=== PATIENT | male | born 1965 | race Caucasian/White ===

== ENCOUNTER 2019-04-07 22:38 | Emergency (ER) | payer OTHER ==
[~2019-04-07] VITALS: Ht 182.9 cm; Wt 77.1 kg
[2019-04-07 22:45] VITALS: BP 130/80
[2019-04-07] MEDS ORDERED: CELEXA20 MG ORAL (22:49)
[2019-04-07] MEDS ORDERED: LEVOTHYROXINE75 MCG ORAL (22:49)
[2019-04-07] MEDS ORDERED: VYVANSE20 MG ORAL (22:49)
--- NOTE | 2019-04-07 22:55 | NUR ---
ED Nurse Note: pt ambulated to ED from home c/o 10 Abdominal pain radiating to flank x1week, nausea and vommitting today. Pt is A&Ox4
--- NOTE | 2019-04-07 23:04 | NUR ---
ED Nurse Note: Pt down to CT
--- NOTE | 2019-04-07 23:08 | Emergency Room Report ---
History of Present Illness General Chief Complaint: Abdominal Pain Source: Patient Present Illness HPI This is a 53-year-old male with no past medical history. He presents with chief complaint of right flank pain. He is ongoing for a couple weeks now. He had an initial urinalysis which show crystals. His doctor thought he may have had a kidney stone. He had a recent urinalysis and was negative. Patient had acute flank pain and epigastric pain with nausea and vomiting. This is after taking an herbal supplement. He is felt better now. Pain is achy now. No longer have any vomiting. No diarrhea. Denies any other complaint. Allergies: Coded Allergies: No Known Allergies (Unverified , 04/07/19) Patient History Past Medical History: see triage record, old chart reviewed Past Surgical History: none Pertinent Family History: none Social History: Denies: smoking Immunizations: other Reviewed Nursing Documentation: PMH: Agreed; PSxH: Agreed Nursing Documentation-PMH Past Medical History: No History, Except For Review of Systems Eye: Denies: eye pain, blurred vision ENT: Denies: ear pain, nose congestion, throat swelling Respiratory: Denies: cough, shortness of breath Cardiovascular: Denies: chest pain, palpitations Gastrointestinal: Reports: abdominal pain, nausea, vomiting; Denies: diarrhea Musculoskeletal: Denies: back pain, joint pain Skin: Denies: rash Neurological: Denies: headache, numbness Endocrine: Denies: increased thirst, increased urine Hematologic/Lymphatic: Denies: easy bruising All Other Systems: negative except mentioned in HPI Physical Exam Vital Signs Date Time Temp Pulse Resp B/P (MAP) Pulse Ox O2 Delivery O2 Flow Rate FiO2 04/07/19 22:41 99.5 91 24 130/80 (97) 98 Room Air Vitals normal Sp02 EP Interpretation: reviewed, normal General Appearance: well appearing, no apparent distress, alert Head: normocephalic, atraumatic Eyes: bilateral eye PERRL, bilateral eye EOMI ENT: hearing grossly normal, normal pharynx Neck: full range of motion, supple, no meningismus Respiratory: chest non-tender, lungs clear, normal breath sounds Cardiovascular #1: regular rate, rhythm, no murmur Gastrointestinal: normal bowel sounds, non tender, no mass, no organomegaly, no bruit, non-distended Musculoskeletal: back normal, gait/station normal, normal range of motion Psychiatric: mood/affect normal Medical Decision Making Diagnostic Impression: Primary Impression: Abdominal pain Qualified Codes: R10.84 - Generalized abdominal pain Additional Impression: Gastroenteritis ER Course Patient with abdominal pain with nausea and vomiting. CT scan negative for kidney stone. Does have evidence of gastroenteritis. Symptoms improved. Will discharge home. CT/MRI/US Diagnostic Results CT/MRI/US Diagnostic Results : Imaging Test Ordered: CT abdomen pelvis Impression By radiologist. Fluid within nondistended loops of small bowel and within stomach. This is usually seen with gastroenteritis. Last Vital Signs Date Time Temp Pulse Resp B/P (MAP) Pulse Ox O2 Delivery O2 Flow Rate FiO2 04/07/19 22:41 99.5 91 24 130/80 (97) 98 Room Air Status: improved Disposition: HOME, SELF-CARE Condition: Stable Scripts Ondansetron (Zofran) 4 Mg Tablet 4 MG ORAL Q6H PRN for Nausea & Vomiting, #10 TAB 0 Refills Prov: Vincenzo Alvarado MD 04/08/19 Referrals: NON PHYSICIAN (PCP) Additional Instructions: Increase fluids. Advance diet as tolerated. Follow-up with your doctor in 2 to 3 days if not better. Return if worse. Vincenzo Alvarado MD Apr 07, 2019 23:08
--- NOTE | 2019-04-07 23:10 | NUR ---
ED Nurse Note: Pt back from CT
[2019-04-07] MEDS ORDERED: Ketorolac 30mg Inj IV ONE (23:15)
[2019-04-07 23:25] LABS: APPEARANCE,URINE CLEAR; BILIRUBIN, URINE NEGATIVE (NEGATIVE); GLUCOSE, URINE (UA) NEGATIVE (NEGATIVE); KETONES,URINE 4+ (NEGATIVE); LEUKOCYTE ESTERASE ,URINE 1+ (NEGATIVE); NITRITE,URINE NEGATIVE (NEGATIVE); PH,URINE 8 (4.5-8.0); PROTEIN,URINE 1+ (NEGATIVE); UROBILINOGEN,URINE 4 MG/DL (0.0-1.0)
[2019-04-07 23:31] LABS: COLOR,URINE YELLOW
[2019-04-07 23:33] LABS: HEMATOCRIT 47.6 % (42.0-52.0); HEMOGLOBIN 16.4 G/DL (14.2-18.0); MEAN CORPUSCULAR VOLUME 95 FL (80-99); PLATELET COUNT 131 K/UL (150-450); RED BLOOD COUNT 5.01 M/UL (4.70-6.10); RED CELL DISTRIBUTION WIDTH 11.8 % (11.6-14.8); WHITE BLOOD COUNT 5.3 K/UL (4.8-10.8)
[2019-04-07 23:44] LABS: ANION GAP 8 mmol/L (5-15); BLOOD UREA NITROGEN 14 mg/dL (7-18); CALCIUM 9.3 MG/DL (8.5-10.1); CARBON DIOXIDE 30 MMOL/L (21-32); CHLORIDE 106 MMOL/L (98-107); CREATININE 1.1 MG/DL (0.55-1.30); SODIUM 144 MMOL/L (136-145)
[2019-04-07 23:54] LABS: ALANINE AMINOTRANSFERASE 32 U/L (12-78); ALBUMIN 4.4 G/DL (3.4-5.0); ALBUMIN/GLOBULIN RATIO 1.4 (1.0-2.7); ALKALINE PHOSPHATASE 64 U/L (46-116); ASPARTATE AMINO TRANSFERASE 17 U/L (15-37); BILIRUBIN,TOTAL 1.1 MG/DL (0.2-1.0)
[2019-04-07 23:55] LABS: BILIRUBIN,DIRECT 0.2 MG/DL (0.0-0.3)
[2019-04-08] MEDS ORDERED: Morphine Sulfate 4mg/ml Inj (IV USE ONLY) IVP ONE
--- NOTE | 2019-04-08 00:05 | Diagnostic Imaging Report ---
EXAM: CT Abdomen and Pelvis Without Intravenous Contrast CLINICAL HISTORY: ABD PAIN TECHNIQUE: Axial computed tomography images of the abdomen and pelvis without intravenous contrast. CTDI is 14.51 mGy and DLP is 783 mGy-cm. One or more of the following dose reduction techniques were used: automated exposure control, adjustment of the mA and/or kV according to patient size, use of iterative reconstruction technique. COMPARISON: No relevant prior studies available. FINDINGS: Lung bases: Unremarkable. No mass. No consolidation. ABDOMEN: Liver: See below. Gallbladder and bile ducts: See below. Pancreas: See below. Spleen: See below. Adrenals: Unremarkable. No mass. Kidneys and ureters: See below. Stomach and bowel: Fluid within nondistended loops of small bowel and within stomach without bowel wall thickening or surrounding inflammation can be normal or can be seen with gastroenteritis in the right clinical setting. Upper abdomen mild central mesenteric stranding may represent mesenteritis. PELVIS: Appendix: No appendicitis, inflammatory changes of bowel or bowel obstruction. Bladder: Unremarkable. No stones. Reproductive: Unremarkable as visualized. ABDOMEN and PELVIS: Intraperitoneal space: No free fluid. No free air. Bones/joints: No acute fracture. No dislocation. Soft tissues: Unremarkable. Vasculature: Aorta, liver, spleen, pancreas, gallbladder, and kidneys are unremarkable. No abdominal aortic aneurysm. Lymph nodes: Unremarkable. No enlarged lymph nodes. IMPRESSION: Fluid within nondistended loops of small bowel and within stomach without bowel wall thickening or surrounding inflammation can be normal or can be seen with gastroenteritis in the right clinical setting. Upper abdomen mild central mesenteric stranding may represent mesenteritis. No other acute or inflammatory disease or bowel obstruction.
[2019-04-08] MEDS ORDERED: ZOFRAN4 MG ORAL (00:30)
[2019-04-08 00:35] VITALS: BP 130/80
--- NOTE | 2019-04-08 00:38 | NUR ---
ER DISCHARGE NOTE: Patient is cleared to be discharged per ERMD, pt is aox4, on room air, with stable vital signs. pt was given dc and prescription instructions, pt was able to verbalize understanding, pt id band and iv site removed without complications. pt is able to ambulate with steady gait. pt took all belongings.
== END 2019-04-08 00:35 | disposition home or self-care (01) ==
LOC: EMR 23:00
DX: K52.9 Noninfective gastroenteritis and colitis, unspecified (principal); R10.84 Generalized abdominal pain
CPT/HCPCS: 36415; 74176; 80053; 81003; 82248; 83690; 85007; 85025; 96361; 96374; 96375; 99284; J1885; J2270; J2405

== ENCOUNTER 2019-08-19 21:49 | Emergency (ER) | payer OTHER ==
[~2019-08-19] VITALS: Ht 182.9 cm; Wt 79.4 kg
[~2019-08-19 21:49] MED LIST: CELEXA20 MG ORAL; LEVOTHYROXINE75 MCG ORAL; VYVANSE20 MG ORAL; ZOFRAN4 MG ORAL
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
[2019-08-19 22:03] VITALS: BP 135/92
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
--- NOTE | 2019-08-19 22:09 | NUR ---
ED Nurse Note: pt given medication and tolerated well, pt sent to CT scan
[2019-08-19] MEDS ORDERED: HYDROmorphone 1mg/ml Carpuject IM ONE (22:15)
--- NOTE | 2019-08-19 22:16 | NUR ---
ED Nurse Note: pt returned from CT
--- NOTE | 2019-08-19 22:49 | NUR ---
ED Nurse Note: pt vomited 2x filling 2 kidney basins. informed ermd. will await further orders
--- NOTE | 2019-08-19 22:51 | NUR ---
ED Nurse Note: pt given 2nd dose of zofran and tolerated well. pt was ambulated to restroom to uriante. spouse still at bedside. provided pt with water
--- NOTE | 2019-08-19 22:52 | Diagnostic Imaging Report ---
Indications: Head trauma Technique: Spiral acquisitions obtained through the brain. Angled axial and coronal 5 x 5 mm slices were reconstructed. Total dose length product 1457 mGycm. CTDI vol(s) 62 mGy. Dose reduction achieved using automated exposure control Comparison: None. Findings: There is a small right supraorbital scalp hematoma noted. No acute intracranial hemorrhage or edema. No mass effect nor midline shift. Normal drew-white differentiation. Normal size ventricles and extra-axial CSF spaces. Visualized orbits are unremarkable. There is a right maxillary sinus air-fluid level, bilateral maxillary and ethmoid echo sagittal disease, and evidence of prior left maxillary sinus surgery. There is minimal mastoid disease on the right. The calvarium is intact. Impression: Evidence of right supraorbital scalp soft tissue trauma. Negative for acute intracranial bleed or mass effect Sinus disease Minimal mastoid disease This agrees with the preliminary interpretation provided overnight by [facility]. The CT scanner at [facility] is accredited by the [employer] and the scans are performed using protocols designed to limit radiation exposure to as low as reasonably achievable to attain images of sufficient resolution adequate for diagnostic evaluation.
--- NOTE | 2019-08-19 23:10 | NUR ---
HAND-OFF: Report given to BEENA Villela.
[2019-08-19 23:15] VITALS: BP 131/79
[2019-08-19] MEDS ORDERED: HYDROCODON-ACE1 EA15 ORAL (23:17)
[2019-08-19] MEDS ORDERED: IBUPROFEN600 MG ORAL (23:17)
--- NOTE | 2019-08-19 23:25 | NUR ---
ER DISCHARGE NOTE: Patient is cleared to be discharged per ERMD, pt is aox4, on room air, with stable vital signs. pt was given dc and prescription instructions, pt was able to verbalize understanding, pt id band removed without complications. pt is able to ambulate with steady gait. pt took all belongings.
[2019-08-19 23:28] VITALS: BP 131/79
== END 2019-08-19 23:25 | disposition home or self-care (01) ==
LOC: EMR 22:07
DX: S09.90XA Unspecified injury of head, initial encounter (principal); S00.83XA Contusion of other part of head, initial encounter; W05.2XXA Fall from non-moving motorized mobility scooter, initial encounter; Y92.9 Unspecified place or not applicable
CPT/HCPCS: 70450; 96372; 99284; J1170